=== PATIENT | male | born 1965 | race Two or more races ===

== ENCOUNTER 2025-07-11 15:38 | Emergency (ER) | payer OTHER, MEDICAID ==
[~2025-07-11] VITALS: Ht 162.6 cm; Wt 75.5 kg
[2025-07-11] MEDS ORDERED: METF-1211 PO (15:46)
[2025-07-11] MEDS ORDERED: LOSA-30 PO (15:46)
[2025-07-11 15:52] VITALS: TEMP 98.6
[2025-07-11] MEDS ORDERED: FLUORESCEIN SODIUM 1 MG STRIP ONE (16:01)
[2025-07-11] MEDS: PROPARACAINE HCL 0.5% 15 ML OPHTHALMIC SOLUTION OU ONE (16:29)
[2025-07-11] MEDS: FLUORESCEIN SODIUM 1 MG STRIP OU ONE (16:30)
[2025-07-11 16:36] LABS: GLUCOMETER DEV NAME(LOC) ER.7; GLUCOSE,POINT OF CARE 181 MG/DL (70-110)
[2025-07-11 17:10] VITALS: BP 139/76; PULSE 76; RESP 18; O2SAT 99
== END 2025-07-11 18:39 | disposition home or self-care (01) ==
LOC: EMS 15:38
DX: H57.11 Ocular pain, right eye (principal); E11.9 Type 2 diabetes mellitus without complications; I10 Essential (primary) hypertension; Z79.899 Other long term (current) drug therapy
CPT/HCPCS: 82962; 99283